=== PATIENT | male | born 1990 | race Caucasian/White ===

== ENCOUNTER 2023-03-02 12:19 | Emergency (ER) | payer OTHER ==
[~2023-03-02] VITALS: Ht 170.2 cm; Wt 122.5 kg
== END 2023-03-02 16:04 | disposition home or self-care (01) ==
LOC: ER 12:19
DX: R30.0 Dysuria (principal); M54.50 Low back pain, unspecified

== ENCOUNTER 2023-03-06 11:22 | Emergency (ER) | payer OTHER ==
[~2023-03-06] VITALS: Ht 172.7 cm; Wt 90.7 kg
== END 2023-03-06 17:19 | disposition home or self-care (01) ==
LOC: ER 11:22
DX: M51.37 Other intervertebral disc degeneration, lumbosacral region (principal); R10.84 Generalized abdominal pain